=== PATIENT | male | born 1950 | race Caucasian/White ===

== ENCOUNTER 2020-05-29 05:48 | Day surgery (SDC) | payer MEDICARE ==
--- NOTE | 2020-05-28 09:18 | HP ---
HISTORY OF PRESENT ILLNESS: El Kruger is a 69-year-old male patient, retired manager appointment at [employer], likes to travel. His is having plantar fasciitis surgery next week in [place]. The patient has developed a right inguinal hernia over the past 1 to 2 weeks. He is referred by Dr. David Jewell for repair. Plan is robot mesh repair as an outpatient. He understands the risks of infection, bleeding, reoperation, and recurrence of hernia and consents. He had laboratories on 04/25/2020 noting sodium of 138, potassium 4.8, chloride 103, BUN 20, creatinine 1, glucose 139. Liver function tests are normal. White count 4, hemoglobin 15, hematocrit 47, and platelet count 278,000. ALLERGIES: NONE. SOCIAL HISTORY: Tobacco, none. Alcohol, occasionally. MEDICATIONS: 1. Lisinopril 20 mg a day. 2. Cialis as needed. 3. Metformin 1000 mg twice a day. 4. Gemfibrozil 600 mg twice a day. 5. Vytorin 10/20 once a day. 6. Multivitamins daily. 7. [place]-3 1200 a day. 8. Lialda 1.2 three per day. 9. Testim 1.6% twice per day. PAST SURGICAL HISTORY: Pyloromyotomy and tonsillectomy. PAST MEDICAL HISTORY: Hypertension and cholesterol. REVIEW OF SYSTEMS: Ten-point noncontributory. Up to date on his colonoscopies. FAMILY HISTORY: Noncontributory. PHYSICAL EXAMINATION: VITAL SIGNS: 194 pounds, 6 foot tall. Blood pressure 140/72, pulse 77, and temperature 97.9 degrees. HEAD, EARS, EYES, NOSE, AND THROAT: Unremarkable. LUNGS: Clear to auscultation. CARDIAC: Regular rate and rhythm without murmur or gallop. ABDOMEN: Soft and nontender. Right subcostal pyloromyotomy scar. Right inguinal hernia on standing, high in the inguinal canal, does not protrude into his scrotum. Left groin without hernia. EXTREMITIES: Unremarkable. ASSESSMENT AND PLAN: Right inguinal hernia. Recommend robot mesh repair as outpatient. He understands the risks and benefits and consents. Job ID: [id number]
[2020-05-29] MEDS ORDERED: Gabapentin 300 MG CAP ONE (06:10)
[2020-05-29] MEDS ORDERED: Acetaminophen 500 MG TAB ONE (06:10)
[2020-05-29] MEDS ORDERED: Ketorolac Tromethamine 30 MG/ML VIAL ONE (06:10)
[2020-05-29] MEDS ORDERED: Lidocaine 1% w/Epinephrine 1:100K 20 ML VIAL ONE (06:51)
[2020-05-29] MEDS ORDERED: Bupivacaine 0.25% HCL 30 ML VIAL ONE (06:51)
[2020-05-29] MEDS ORDERED: Fentanyl 100 MCG/2 ML VIAL ONE ×3 (07:07→09:28)
[2020-05-29] MEDS ORDERED: Midazolam HCl 2 mg/2 ml Vial ONE (07:07)
[2020-05-29] MEDS ORDERED: Lidocaine 1% PF 5 ML VIAL ONE (09:18)
[2020-05-29] MEDS ORDERED: Ondansetron PF 4 MG/2 ML Vial ONE (09:18)
[2020-05-29] MEDS ORDERED: Rocuronium Bromide 10 MG/ML (10ML VIAL) ONE (09:18)
[2020-05-29] MEDS ORDERED: Dexamethasone 20 MG/5 ML VIAL ONE (09:18)
[2020-05-29] MEDS ORDERED: PROPOFOL 200 MG/20 ML VIAL ONE (09:18)
--- NOTE | 2020-05-29 10:40 | OP ---
DATE OF PROCEDURE: 05/29/2020 PREOPERATIVE DIAGNOSIS: Right inguinal hernia. POSTOPERATIVE DIAGNOSIS: Right inguinal hernia. PROCEDURE PERFORMED: Robot laparoscopic mesh repair, 3D Bard mesh, large, right inguinal hernia. ANESTHESIA: General, local 0.5% Marcaine 30 mL mixed with 1% Xylocaine with epinephrine 20 mL. DESCRIPTION OF PROCEDURE: The patient was taken to the operating room, where under general anesthesia, [place] catheter placed at the beginning of the procedure and removed at the end. Abdomen was clipped of hair, prepared with ChloraPrep and draped in routine fashion. Local anesthetic was infiltrated in the skin and subcutaneous tissue about each port site for the ilioinguinal nerve block, right. Left paramedian incision made supraumbilical, and pneumoperitoneum to 15 mmHg was obtained with a Veress needle, replaced with an 11 mm balloon port. Bilateral lateral abdominal incision was made laterally above the umbilical line and 8 mm ports placed and robot docked and robot right inguinal hernia repair undertaken, taking down the peritoneal flap from the anterior superior iliac spine laterally right to medially midline after identifying an indirect right inguinal hernia. The preperitoneal space dissected free, identifying the Tray ligament and dissecting laterally and dissecting the cord structures free of the hernia sac and fatty tissue, skeletonizing these cord structures for least 8 cm, noting good hemostasis. A 3D Bard Max large mesh placed, properly oriented, secured it to Tray ligament with 2-0 Vicryl and to the anterior abdominal wall lateral to the inferior epigastrics with 2-0 Vicryl, properly positioning the mesh, covering at least 8 cm of cord structures. Fatty tissue and hernia sac placed on the underside of the mesh, peritoneal side, and peritoneum closed with continuous suture of #2-0 V-Loc. Good hemostasis noted. Good hernia repair appreciated, pneumoperitoneum reduced. All instruments moved and left paramedian fascia approximated with 2-0 Vicryl, pneumoperitoneum and irrigant evacuated, and skin approximated with 4-0 Monocryl. The patient tolerated procedure well. Job ID: [id number]
[2020-05-29] MEDS ORDERED: HYDROcodone/Acetaminophen 5/325 mg Tablet ONE (11:23)
== END 2020-05-29 11:46 | disposition home or self-care (01) ==
LOC: SDC 05:48
PROVIDERS: ATTEND Specialist
PROC: 0YU54JZ Supplement Right Inguinal Region with Synthetic Substitute, Percutaneous Endoscopic Approach (ICD-10-PCS; principal; 2020-05-29)
DX: K40.90 Unilateral inguinal hernia, without obstruction or gangrene, not specified as recurrent (principal); I10 Essential (primary) hypertension; E78.5 Hyperlipidemia, unspecified; Z79.84 Long term (current) use of oral hypoglycemic drugs; Z79.899 Other long term (current) drug therapy
CPT/HCPCS: C1781; J0690; J1100; J1885; J2250; J2405; J2704; J3010; S0020

== ENCOUNTER 2020-10-07 09:24 | Day surgery (SDC) | payer MEDICARE ==
[2020-10-07] MEDS ORDERED: Ustekinumab 520 MG in Sodium Chloride 0.9% 250 ML 146 ML IV SCH (09:30)
[2020-10-07] MEDS ORDERED: Acetaminophen 500 MG TAB PO PRN (09:33)
[2020-10-07] MEDS ORDERED: diphenhydrAMINE 25 MG CAP PO PRN (09:33)
== END 2020-10-07 11:43 | disposition home or self-care (01) ==
LOC: ONC/OP 09:24
PROVIDERS: ATTEND Internal Medicine
DX: K51.90 Ulcerative colitis, unspecified, without complications (principal)
CPT/HCPCS: 96413; J3358; J7050

== ENCOUNTER 2021-05-23 05:53 | Day surgery (SDC) | payer MEDICARE ==
[2021-05-22 11:24] VITALS: BMI 28.5
[2021-05-23] MEDS ORDERED: ceFAZolin 2 GM/Dextrose 50 ML IVPB ONE ×2 (06:17→12:11)
[2021-05-23] MEDS ORDERED: Thrombin 5000 UNITS/5 ML VIAL ONE (06:24)
[2021-05-23] MEDS ORDERED: Fentanyl 250 MCG/5 ML VIAL ONE (07:21)
[2021-05-23] MEDS ORDERED: SUGAMMADEX SODIUM 200 MG/2 ML VIAL ONE (07:21)
[2021-05-23] MEDS ORDERED: PHENYLEPHRINE-NS 100 MCG/ML 10 ML SYRINGE ONE (07:52)
[2021-05-23] MEDS ORDERED: Ketorolac Tromethamine 30 MG/ML VIAL ONE (07:52)
[2021-05-23] MEDS ORDERED: Ondansetron PF 4 MG/2 ML Vial ONE ×2 (07:52→11:37)
[2021-05-23] MEDS ORDERED: Glycopyrrolate 0.2 MG/ML 5 ML SYRINGE ONE ×2 (07:52)
[2021-05-23] MEDS ORDERED: PROPOFOL 200 MG/20 ML VIAL ONE (07:52)
[2021-05-23] MEDS ORDERED: Lidocaine 1% PF 5 ML VIAL ONE (07:52)
[2021-05-23] MEDS ORDERED: ePHEDrine 50 MG/ML VIAL ONE (07:52)
[2021-05-23] MEDS ORDERED: Rocuronium Bromide 10 MG/ML (10ML VIAL) ONE (07:52)
[2021-05-23] MEDS ORDERED: HYDROmorphone 0.5 MG/0.5 ML SYRINGE ONE ×4 (10:14→10:40)
[2021-05-23] MEDS ORDERED: Morphine 4 MG/ML VIAL ONE (10:48)
[2021-05-23] MEDS ORDERED: Promethazine HCl 25 MG/ML VIAL ONE (12:11)
[2021-05-23] MEDS ORDERED: HYDROcodone/Acetaminophen 5/325 mg Tablet ONE (13:54)
== END 2021-05-23 14:40 | disposition home or self-care (01) ==
LOC: SDC 05:53
PROVIDERS: ATTEND Surgery
PROC: 01NB0ZZ Release Lumbar Nerve, Open Approach (ICD-10-PCS; principal; 2021-05-23)
PROC: 0SB20ZZ Excision of Lumbar Vertebral Disc, Open Approach (ICD-10-PCS; 2021-05-23)
DX: M51.16 Intervertebral disc disorders with radiculopathy, lumbar region (principal); M48.062 Spinal stenosis, lumbar region with neurogenic claudication; Z79.84 Long term (current) use of oral hypoglycemic drugs; Z79.899 Other long term (current) drug therapy
CPT/HCPCS: 76000; J0690; J1170; J1885; J2270; J2405; J2550; J2704; J3010; J3370; J3490

== ENCOUNTER 2022-01-20 05:34 | Day surgery (SDC) | payer MEDICARE ==
[2022-01-15 12:43] VITALS: BMI 28.5
[2022-01-20] MEDS ORDERED: Bupivacaine PF 0.5% 30 ML VIAL ONE (06:31)
[2022-01-20] MEDS ORDERED: Betamet Acet/Betamet Na Ph 30 MG/5 ML VIAL ONE (06:31)
[2022-01-20] MEDS ORDERED: Bacitracin Zinc Ointment 30 gm TUBE ONE (06:31)
[2022-01-20] MEDS ORDERED: ceFAZolin (BATCH) 2 GM/100 ML BAG ONE (07:08)
[2022-01-20] MEDS ORDERED: Ondansetron PF 4 MG/2 ML Vial ONE (07:19)
[2022-01-20] MEDS ORDERED: Lidocaine 1% PF 5 ML VIAL ONE (07:19)
[2022-01-20] MEDS ORDERED: PROPOFOL 200 MG/20 ML VIAL ONE (07:19)
[2022-01-20] MEDS ORDERED: Dexamethasone 20 MG/5 ML VIAL ONE (07:19)
[2022-01-20] MEDS ORDERED: Ketorolac Tromethamine 30 MG/ML VIAL ONE (07:19)
== END 2022-01-20 10:13 | disposition home or self-care (01) ==
LOC: SDC 05:34
PROVIDERS: ATTEND Orthopaedic Surgery Hand Surgery
PROC: 0LB70ZZ Excision of Right Hand Tendon, Open Approach (ICD-10-PCS; principal; 2022-01-20)
PROC: 0LN70ZZ Release Right Hand Tendon, Open Approach (ICD-10-PCS; 2022-01-20)
DX: M67.441 Ganglion, right hand (principal); M65.331 Trigger finger, right middle finger; E11.9 Type 2 diabetes mellitus without complications; Z79.899 Other long term (current) drug therapy; Z79.84 Long term (current) use of oral hypoglycemic drugs
CPT/HCPCS: J0690; J0702; S0020

== ENCOUNTER 2022-01-30 10:48 | Inpatient (IN) | payer MEDICARE ==
[~2022-01-30 10:48] MED LIST: Heparin 1,000 UNITS/ML VIAL ONE
[2022-01-30] MEDS ORDERED: cefTRIAXone\\ROCEPHIN 2 GM VIAL ONE (11:39)
[2022-01-30] MEDS ORDERED: HYDROcodone/Acetaminophen 10/325 mg Tablet ONE (11:39)
[2022-01-30 11:45] LABS: #Lymphocytes 0.9 thou/uL (1.20-3.40); #Monocytes 0.6 thou/uL (0.11-0.59); #Neutrophils 6.7 thou/uL (1.40-6.50); %Basophils 0.1 % (0.0-1.0); %Eosinophils 0.3 % (0.0-10.0); %Lymphocytes 10.7 % (21.0-51.0); %Monocytes 7.3 % (0.0-10.0); %Neutrophils 81.6 % (42.0-75.0); Hemoglobin 13.8 g/dL (14.0-18.0); Mean Corpuscular Hemoglobin 33.4 pg (27.0-31.0); Mean Platelet Volume 8.2 fL (7.4-10.4); Platelet Count 205 thou/uL (130-400); RBC Distribution Width 12.5 % (11.5-14.5); Red Blood Cell (RBC) Count 4.15 mill/uL (4.70-6.10); White Blood Cell (WBC) Count 8.2 thou/uL (4.8-10.8)
[2022-01-30 12:05] LABS: ALT (SGPT) 24 U/L (8-55); AST (SGOT) 23 U/L (5-34); Albumin 4.3 g/dL (3.4-4.8); Alkaline Phosphatase 48 U/L (40-110); Anion Gap 13 mmol/L (10-20); BUN (Urea Nitrogen) 27 mg/dL (8.4-25.7); Bilirubin, Total 0.7 mg/dL (0.2-1.2); Calc. Creatinine Clearance 0 mL/min (70-130); Calcium 9.4 mg/dL (7.8-10.44); Carbon Dioxide 25 mmol/L (23-31); Chloride 103 mmol/L (98-107); Globulin 3.3 g/dL (2.4-3.5); Glucose 154 mg/dL (83-110); Potassium 4.2 mmol/L (3.5-5.1); Protein, Total 7.6 g/dL (5.8-8.1); Sodium 137 mmol/L (136-145)
[2022-01-30] MEDS ORDERED: Morphine 4 MG/ML VIAL ONE (14:34)
[2022-01-30 15:35] VITALS: BMI 28.5
[2022-01-30] MEDS ORDERED: Ketorolac Tromethamine 30 MG/ML VIAL IVP PRN (15:37)
[2022-01-30] MEDS ORDERED: Ondansetron ODT 4 MG TAB SL PRN (15:45)
[2022-01-30] MEDS ORDERED: Ondansetron PF 4 MG/2 ML Vial IVP PRN ×2 (15:45→21:08)
[2022-01-30] MEDS: Sodium Chloride 0.9% 1,000 ML IV SCH ×2 (15:49→22:40)
[2022-01-30 17:28] LABS: SARS-CoV-2 NAA Rapid Test Not Detected (NotDetected)
[2022-01-30] MEDS ORDERED: Fentanyl 100 MCG/2 ML VIAL ONE ×2 (18:30→21:08)
[2022-01-30] MEDS ORDERED: Promethazine HCl 25 MG/ML VIAL IVPB PRN (18:37)
[2022-01-30] MEDS ORDERED: Promethazine HCl 25 MG/ML VIAL IM PRN ×2 (18:37→21:08)
[2022-01-30] MEDS ORDERED: Ondansetron HCl/PF 4 MG/2 ML Vial IVP PRN (18:37)
[2022-01-30] MEDS ORDERED: HYDROmorphone 2 MG/ML VIAL SLOW IVP PRN (18:37)
[2022-01-30] MEDS ORDERED: Morphine Sulfate 2 MG/ML SYRINGE SLOW IVP PRN (18:37)
[2022-01-30] MEDS ORDERED: Meperidine HCl/PF 25 MG/ML VIAL SLOW IVP PRN ×2 (18:37)
[2022-01-30] MEDS ORDERED: Bupivacaine 0.25% 10 ML VIAL ONE (19:31)
[2022-01-30] MEDS ORDERED: Neomycin-Polymyxin 1 ML AMP ONE (19:31)
[2022-01-30] MEDS ORDERED: Bacitracin Zinc Ointment 30 gm TUBE ONE (19:31)
[2022-01-30] MEDS ORDERED: Fentanyl 250 MCG/5 ML VIAL ONE (19:32)
[2022-01-30] MEDS ORDERED: PROPOFOL 200 MG/20 ML VIAL ONE (19:46)
[2022-01-30] MEDS ORDERED: Ondansetron PF 4 MG/2 ML Vial ONE (19:46)
[2022-01-30] MEDS ORDERED: Lidocaine 1% PF 5 ML VIAL ONE (19:46)
[2022-01-30] MEDS ORDERED: Fentanyl 100 MCG/2 ML VIAL SLOW IVP PRN (21:08)
[2022-01-30] MEDS ORDERED: Bisacodyl 10 MG SUPP PR PRN (21:08)
[2022-01-30] MEDS ORDERED: Acetaminophen 325 MG TAB PO PRN (21:08)
[2022-01-30] MEDS ORDERED: Communication Order-Pharmacy FS SCH (21:15)
[2022-01-30] MEDS ORDERED: TETANUS AND DIPHTHERIA TOX/PF 0.5 ML DISP.SYRIN IM SCH (21:15)
[2022-01-30] MEDS ORDERED: Acetaminophen 325 MG TAB ONE ×2 (21:19)
[2022-01-30] MEDS ORDERED: Gentamicin 80 MG/2 ML VIAL IM SCH (22:00)
[2022-01-30] MEDS: Sodium Chloride 0.9% 100 ML IV SCH ×3 (22:38→22:45)
[2022-01-30] MEDS: Gentamicin Sulfate 80 MG in Premix Bag 1 BAG IVPB SCH (22:38)
[2022-01-30] MEDS: Ketorolac Tromethamine 30 MG/ML VIAL IVP PRN (22:43)
[2022-01-30] MEDS: HYDROcodone/Acetaminophen 5/325 mg Tablet PO PRN (22:44)
[2022-01-30] MEDS ORDERED: Dextrose 5% in Water 1,000 ML IV PRN (23:12)
[2022-01-30] MEDS ORDERED: HumaLOG 300 UNITS/3 ML VIAL SC PRN (23:12)
[2022-01-30] MEDS ORDERED: Dextrose 50% Abboject 50 ML SYRINGE SLOW IVP PRN (23:12)
[2022-01-30] MEDS ORDERED: hydrALAZINE 20 MG/ML VIAL SLOW IVP PRN (23:14)
[2022-01-31] MEDS: Pen G 2.5 MILL.UNITS/50 ML BAG IVPB SCH ×3 (00:11→07:00)
[2022-01-31] MEDS: Sodium Chloride 0.9% 100 ML IV SCH ×7 (00:12→15:50)
[2022-01-31] MEDS: HYDROcodone/Acetaminophen 5/325 mg Tablet PO PRN ×4 (03:16→20:58)
[2022-01-31 06:02] LABS: #Eosinphils 0.1 thou/uL (0.0-0.7); #Lymphocytes 1.2 thou/uL (1.20-3.40); #Monocytes 0.6 thou/uL (0.11-0.59); %Basophils 0.3 % (0.0-1.0); %Eosinophils 0.9 % (0.0-10.0); %Lymphocytes 17.6 % (21.0-51.0); %Monocytes 8.6 % (0.0-10.0); %Neutrophils 72.7 % (42.0-75.0); Hemoglobin 12.6 g/dL (14.0-18.0); Mean Corpuscular HGB CONC 33.8 g/dL (32.0-36.0); Mean Corpuscular Hemoglobin 34.4 pg (27.0-31.0); Mean Platelet Volume 8.3 fL (7.4-10.4); Platelet Count 187 thou/uL (130-400); RBC Distribution Width 12.6 % (11.5-14.5); Red Blood Cell (RBC) Count 3.66 mill/uL (4.70-6.10); White Blood Cell (WBC) Count 6.8 thou/uL (4.8-10.8)
[2022-01-31] MEDS: Gentamicin Sulfate 80 MG in Premix Bag 1 BAG IVPB SCH (06:05)
[2022-01-31] MEDS: Ketorolac Tromethamine 30 MG/ML VIAL IVP PRN ×2 (06:05→12:02)
[2022-01-31] MEDS: traMADol HCl 50 MG TAB PO PRN ×2 (06:06→12:00)
[2022-01-31 06:09] LABS: INR-International Normal Ratio 1.1; PTT 43.3 sec (22.9-36.1); Prothrombin Time 14.6 sec (12.0-14.7)
[2022-01-31] MEDS: Penicillin G Potassium 2.5 MILL.UNITS in Sodium Chloride 0.9% 50 ML IVPB SCH ×2 (08:18→11:45)
[2022-01-31] MEDS: azaTHIOprine 50 MG TAB PO SCH (08:23)
[2022-01-31] MEDS: Lisinopril 20 MG TAB PO SCH (08:25)
[2022-01-31] MEDS: Aspirin 81 mg Enteric Coated Tablet PO SCH ×2 (08:25→19:59)
[2022-01-31] MEDS: Vancomycin 1 GM in Premix Bag 1 BAG IVPB SCH ×2 (08:56→20:03)
[2022-01-31] MEDS ORDERED: Vancomycin 1.5 GM in Premix Bag 1 BAG IVPB SCH (09:00)
[2022-01-31] MEDS: Sodium Chloride 0.9% 1,000 ML IV SCH ×2 (10:26→20:05)
[2022-01-31] MEDS: HumaLOG 300 UNITS/3 ML VIAL SC PRN ×2 (11:42→18:09)
[2022-01-31] MEDS: Morphine 4 MG/ML VIAL SLOW IVP PRN (13:59)
[2022-01-31] MEDS ORDERED: Piperacillin/Tazobactam 4.5 GM in Sodium Chloride 0.9% 100 ML IVPB SCH (14:00)
[2022-01-31] MEDS ORDERED: Piperacillin/Tazobactam 3.375 GM in Sodium Chloride 0.9% 100 ML IVPB SCH (14:15)
[2022-01-31] MEDS: Piperacillin/Tazobactam 3.375 GM in Sodium Chloride 0.9% 100 ML IVPB SCH (16:59)
[2022-01-31] MEDS: Gemfibrozil 600 MG TAB PO SCH (16:59)
[2022-01-31] MEDS: Atorvastatin Calcium 20 MG TAB PO SCH (19:59)
[2022-01-31] MEDS: metFORMIN 500 MG TAB PO SCH (20:00)
[2022-01-31] MEDS: Ezetimibe 10 MG TAB PO SCH (20:00)
[2022-02-01] MEDS: Piperacillin/Tazobactam 3.375 GM in Sodium Chloride 0.9% 100 ML IVPB SCH ×3 (02:13→17:32)
[2022-02-01] MEDS: traMADol HCl 50 MG TAB PO PRN ×2 (02:14→22:20)
[2022-02-01] MEDS: Ketorolac Tromethamine 30 MG/ML VIAL IVP PRN ×2 (02:14→07:41)
[2022-02-01] MEDS: Gemfibrozil 600 MG TAB PO SCH ×3 (05:57→17:31)
[2022-02-01] MEDS: HYDROcodone/Acetaminophen 5/325 mg Tablet PO PRN ×4 (05:57→19:56)
[2022-02-01] MEDS: Sodium Chloride 0.9% 1,000 ML IV SCH ×2 (06:21→18:17)
[2022-02-01] MEDS: Morphine 4 MG/ML VIAL SLOW IVP PRN (07:28)
[2022-02-01] MEDS: Vancomycin 1 GM in Premix Bag 1 BAG IVPB SCH ×2 (07:40→19:56)
[2022-02-01] MEDS: Saccharomyces boulardii 250 MG CAP PO SCH (07:44)
[2022-02-01] MEDS: metFORMIN 500 MG TAB PO SCH ×2 (07:44→19:55)
[2022-02-01] MEDS: Aspirin 81 mg Enteric Coated Tablet PO SCH ×2 (07:44→19:56)
[2022-02-01] MEDS: Glimepiride 2 MG TAB PO SCH (07:45)
[2022-02-01] MEDS: Multivitamin W/ Minerals 1 TAB PO SCH (07:45)
[2022-02-01] MEDS: Lisinopril 20 MG TAB PO SCH ×2 (07:45→19:56)
[2022-02-01 08:11] LABS: Vancomycin, Trough 10.2 ug/mL
[2022-02-01 08:13] LABS: Anion Gap 13 mmol/L (10-20); BUN (Urea Nitrogen) 13 mg/dL (8.4-25.7); Calc. Creatinine Clearance 101 mL/min (70-130); Calcium 8.8 mg/dL (7.8-10.44); Carbon Dioxide 24 mmol/L (23-31); Chloride 103 mmol/L (98-107); Glucose 123 mg/dL (83-110); Potassium 4.1 mmol/L (3.5-5.1); Sodium 136 mmol/L (136-145)
[2022-02-01] MEDS: HumaLOG 300 UNITS/3 ML VIAL SC PRN (11:08)
[2022-02-01] MEDS: Atorvastatin Calcium 20 MG TAB PO SCH (19:55)
[2022-02-01] MEDS: Ezetimibe 10 MG TAB PO SCH (19:56)
[2022-02-02] MEDS: Piperacillin/Tazobactam 3.375 GM in Sodium Chloride 0.9% 100 ML IVPB SCH (02:36)
[2022-02-02] MEDS: HYDROcodone/Acetaminophen 5/325 mg Tablet PO PRN ×4 (02:36→19:04)
[2022-02-02] MEDS: Gemfibrozil 600 MG TAB PO SCH ×3 (06:06→17:02)
[2022-02-02] MEDS: traMADol HCl 50 MG TAB PO PRN ×3 (06:07→17:02)
[2022-02-02] MEDS: Meperidine HCl/PF 25 MG/ML VIAL IM PRN (06:17)
[2022-02-02] MEDS: Sodium Chloride 0.9% 1,000 ML IV SCH ×2 (06:41→11:51)
[2022-02-02] MEDS: metFORMIN 500 MG TAB PO SCH ×2 (08:19→21:59)
[2022-02-02] MEDS: Aspirin 81 mg Enteric Coated Tablet PO SCH ×2 (08:19→21:59)
[2022-02-02] MEDS: Multivitamin W/ Minerals 1 TAB PO SCH (08:19)
[2022-02-02] MEDS: Vancomycin 1 GM in Premix Bag 1 BAG IVPB SCH (08:19)
[2022-02-02] MEDS: Lisinopril 20 MG TAB PO SCH ×2 (08:20→22:00)
[2022-02-02] MEDS: Saccharomyces boulardii 250 MG CAP PO SCH (08:20)
[2022-02-02] MEDS: Glimepiride 2 MG TAB PO SCH (08:20)
[2022-02-02] MEDS: ceFAZolin (BATCH) 2 GM in Premix Bag 1 BAG IVPB SCH ×2 (14:19→22:01)
[2022-02-02] MEDS ORDERED: Amlodipine 5 MG TAB PO SCH (15:00)
[2022-02-02] MEDS: Ezetimibe 10 MG TAB PO SCH (21:59)
[2022-02-02] MEDS: Atorvastatin Calcium 20 MG TAB PO SCH (22:00)
[2022-02-02] MEDS: Morphine 4 MG/ML VIAL SLOW IVP PRN (22:16)
[2022-02-03] MEDS: Meperidine HCl/PF 25 MG/ML VIAL IM PRN (00:15)
[2022-02-03] MEDS: HYDROcodone/Acetaminophen 5/325 mg Tablet PO PRN ×2 (00:16→23:10)
[2022-02-03] MEDS: Ketorolac Tromethamine 30 MG/ML VIAL IVP SCH ×5 (03:09→23:10)
[2022-02-03 05:44] LABS: #Eosinphils 0.1 thou/uL (0.0-0.7); #Lymphocytes 0.9 thou/uL (1.20-3.40); #Monocytes 0.4 thou/uL (0.11-0.59); #Neutrophils 3.1 thou/uL (1.40-6.50); %Basophils 0.1 % (0.0-1.0); %Eosinophils 2.5 % (0.0-10.0); %Lymphocytes 20.5 % (21.0-51.0); %Monocytes 8.4 % (0.0-10.0); %Neutrophils 68.5 % (42.0-75.0); Hemoglobin 13.3 g/dL (14.0-18.0); Mean Corpuscular HGB CONC 33.5 g/dL (32.0-36.0); Mean Corpuscular Hemoglobin 33.6 pg (27.0-31.0); Platelet Count 227 thou/uL (130-400); RBC Distribution Width 12.2 % (11.5-14.5); Red Blood Cell (RBC) Count 3.96 mill/uL (4.70-6.10); White Blood Cell (WBC) Count 4.6 thou/uL (4.8-10.8)
[2022-02-03] MEDS: ceFAZolin (BATCH) 2 GM in Premix Bag 1 BAG IVPB SCH ×3 (05:58→21:56)
[2022-02-03 06:04] LABS: Anion Gap 12 mmol/L (10-20); BUN (Urea Nitrogen) 16 mg/dL (8.4-25.7); Calc. Creatinine Clearance 94 mL/min (70-130); Calcium 9.6 mg/dL (7.8-10.44); Carbon Dioxide 24 mmol/L (23-31); Chloride 102 mmol/L (98-107); Glucose 200 mg/dL (83-110); Potassium 4.1 mmol/L (3.5-5.1); Sodium 134 mmol/L (136-145)
[2022-02-03] MEDS: Lisinopril 20 MG TAB PO SCH ×2 (08:23→20:24)
[2022-02-03] MEDS: Multivitamin W/ Minerals 1 TAB PO SCH (09:14)
[2022-02-03] MEDS: Gemfibrozil 600 MG TAB PO SCH ×3 (09:14→17:38)
[2022-02-03] MEDS: metFORMIN 500 MG TAB PO SCH ×2 (09:14→20:23)
[2022-02-03] MEDS: Saccharomyces boulardii 250 MG CAP PO SCH (09:14)
[2022-02-03] MEDS: Glimepiride 2 MG TAB PO SCH (09:14)
[2022-02-03] MEDS: Aspirin 81 mg Enteric Coated Tablet PO SCH ×2 (09:14→20:34)
[2022-02-03] MEDS ORDERED: fentaNYL Citrate/PF 100 MCG/2 ML SYRINGE ONE (12:49)
[2022-02-03] MEDS ORDERED: Bupivacaine PF 0.5% 30 ML VIAL ONE (12:54)
[2022-02-03] MEDS ORDERED: Bacitracin Zinc Ointment 30 gm TUBE ONE (12:54)
[2022-02-03] MEDS ORDERED: Neomycin-Polymyxin 1 ML AMP ONE (12:54)
[2022-02-03] MEDS ORDERED: PROPOFOL 200 MG/20 ML VIAL ONE (12:55)
[2022-02-03] MEDS ORDERED: Ketorolac Tromethamine 30 MG/ML VIAL ONE (12:55)
[2022-02-03] MEDS ORDERED: Ondansetron PF 4 MG/2 ML Vial ONE (12:55)
[2022-02-03] MEDS ORDERED: Promethazine HCl 25 MG/ML VIAL IVPB PRN (14:18)
[2022-02-03] MEDS ORDERED: Ondansetron HCl/PF 4 MG/2 ML Vial IVP PRN (14:18)
[2022-02-03] MEDS ORDERED: Promethazine HCl 25 MG/ML VIAL IM PRN (14:18)
[2022-02-03] MEDS ORDERED: Fentanyl 100 MCG/2 ML VIAL ONE ×2 (14:21→14:37)
[2022-02-03] MEDS: Morphine 4 MG/ML VIAL SLOW IVP PRN (15:43)
[2022-02-03] MEDS: Atorvastatin Calcium 20 MG TAB PO SCH (20:24)
[2022-02-03] MEDS: Ezetimibe 10 MG TAB PO SCH (20:27)
[2022-02-04] MEDS: ceFAZolin (BATCH) 2 GM in Premix Bag 1 BAG IVPB SCH ×3 (06:00→22:06)
[2022-02-04] MEDS: Ketorolac Tromethamine 30 MG/ML VIAL IVP SCH ×2 (06:00→12:08)
[2022-02-04] MEDS: Gemfibrozil 600 MG TAB PO SCH ×3 (06:01→17:34)
[2022-02-04] MEDS: HYDROcodone/Acetaminophen 5/325 mg Tablet PO PRN ×3 (06:07→18:19)
[2022-02-04] MEDS: Glimepiride 2 MG TAB PO SCH (10:23)
[2022-02-04] MEDS: azaTHIOprine 50 MG TAB PO SCH (10:24)
[2022-02-04] MEDS: metFORMIN 500 MG TAB PO SCH ×2 (10:24→20:20)
[2022-02-04] MEDS: Aspirin 81 mg Enteric Coated Tablet PO SCH ×2 (10:24→20:19)
[2022-02-04] MEDS: Lisinopril 20 MG TAB PO SCH ×2 (10:24→20:20)
[2022-02-04] MEDS: Multivitamin W/ Minerals 1 TAB PO SCH (10:25)
[2022-02-04] MEDS: Saccharomyces boulardii 250 MG CAP PO SCH (10:25)
[2022-02-04] MEDS: Atorvastatin Calcium 20 MG TAB PO SCH (20:19)
[2022-02-04] MEDS: Ezetimibe 10 MG TAB PO SCH (20:19)
[2022-02-05] MEDS: HYDROcodone/Acetaminophen 5/325 mg Tablet PO PRN ×3 (00:08→13:25)
[2022-02-05] MEDS: Gemfibrozil 600 MG TAB PO SCH ×2 (06:03→12:07)
[2022-02-05] MEDS: ceFAZolin (BATCH) 2 GM in Premix Bag 1 BAG IVPB SCH ×2 (06:04→13:26)
[2022-02-05] MEDS: Aspirin 81 mg Enteric Coated Tablet PO SCH (08:55)
[2022-02-05] MEDS: Lisinopril 20 MG TAB PO SCH (08:55)
[2022-02-05] MEDS: metFORMIN 500 MG TAB PO SCH (08:55)
[2022-02-05] MEDS: azaTHIOprine 50 MG TAB PO SCH (08:56)
[2022-02-05] MEDS: Glimepiride 2 MG TAB PO SCH (08:56)
[2022-02-05] MEDS: Multivitamin W/ Minerals 1 TAB PO SCH (08:56)
[2022-02-05] MEDS: Saccharomyces boulardii 250 MG CAP PO SCH (08:56)
[2022-02-05] MEDS ORDERED: Amlodipine 10 MG TAB PO SCH (09:00)
[2022-02-05] MEDS ORDERED: Amlodipine 5 MG TAB PO SCH (09:00)
[2022-02-05 09:16] LABS: #Eosinphils 0.2 thou/uL (0.0-0.7); #Lymphocytes 1.1 thou/uL (1.20-3.40); #Monocytes 0.4 thou/uL (0.11-0.59); #Neutrophils 2.9 thou/uL (1.40-6.50); %Basophils 0.6 % (0.0-1.0); %Eosinophils 4.6 % (0.0-10.0); %Lymphocytes 23.4 % (21.0-51.0); %Monocytes 8.6 % (0.0-10.0); %Neutrophils 62.9 % (42.0-75.0); Hemoglobin 13.5 g/dL (14.0-18.0); Mean Corpuscular HGB CONC 32.3 g/dL (32.0-36.0); Mean Corpuscular Hemoglobin 32.7 pg (27.0-31.0); Mean Platelet Volume 7.7 fL (7.4-10.4); Platelet Count 260 thou/uL (130-400); RBC Distribution Width 12.2 % (11.5-14.5); Red Blood Cell (RBC) Count 4.12 mill/uL (4.70-6.10); White Blood Cell (WBC) Count 4.7 thou/uL (4.8-10.8)
[2022-02-05 09:43] LABS: Anion Gap 15 mmol/L (10-20); BUN (Urea Nitrogen) 27 mg/dL (8.4-25.7); Calc. Creatinine Clearance 81 mL/min (70-130); Calcium 9.5 mg/dL (7.8-10.44); Carbon Dioxide 24 mmol/L (23-31); Chloride 102 mmol/L (98-107); Glucose 212 mg/dL (83-110); Potassium 4.2 mmol/L (3.5-5.1); Sodium 137 mmol/L (136-145)
[2022-02-05 15:43] VITALS: BP 125/78; TEMP 97.8
== END 2022-02-05 16:50 | disposition home health service (06) | DRG 857 ==
LOC: ERS 10:48 → SURG A 13:06 → OBSVTOIN 21:08
PROVIDERS: ADMIT Hospitalist; ATTEND Hospitalist
PROC: 0LB70ZZ Excision of Right Hand Tendon, Open Approach (ICD-10-PCS; principal; 2022-01-30)
PROC: 02HV33Z Insertion of Infusion Device into Superior Vena Cava, Percutaneous Approach (ICD-10-PCS; 2022-01-30)
PROC: B548ZZA Ultrasonography of Superior Vena Cava, Guidance (ICD-10-PCS; 2022-01-30)
PROC: 0LB70ZZ Excision of Right Hand Tendon, Open Approach (ICD-10-PCS; 2022-02-03)
DX: T81.49XA Infection following a procedure, other surgical site, initial encounter (principal); L02.511 Cutaneous abscess of right hand; K51.90 Ulcerative colitis, unspecified, without complications; E11.628 Type 2 diabetes mellitus with other skin complications; M65.141 Other infective (teno)synovitis, right hand; Z20.822 Contact with and (suspected) exposure to COVID-19; I10 Essential (primary) hypertension; Y83.8 Other surgical procedures as the cause of abnormal reaction of the patient, or of later complication, without mention of misadventure at the time of the procedure; B95.61 Methicillin susceptible Staphylococcus aureus infection as the cause of diseases classified elsewhere; E78.5 Hyperlipidemia, unspecified; Z79.899 Other long term (current) drug therapy; Z98.890 Other specified postprocedural states; Z90.09 Acquired absence of other part of head and neck; Z83.3 Family history of diabetes mellitus
CPT/HCPCS: 36415; 36416; 36569; 80048; 80053; 80170; 80202; 85025; 85610; 85730; 86140; 87070; 87077; 87186; 87205; 96365; 96375; C1751; G0378; J0690; J0696; J1580; J1644; J1815; J1885; J2175; J2270; J2405; J2540; J2543; J2550; J2704; J3010; J3370; J3490; J7050; J7500; S0020; U0002